=== PATIENT | male | born 1945 | race Caucasian/White ===

== ENCOUNTER 2017-03-22 20:32 | Emergency (ER) | payer MEDICARE, OTHER ==
[~2017-03-22] VITALS: Ht 157.5 cm; Wt 75.0 kg
[~2017-03-22 20:32] MED LIST: COUM2TAB PO; DILA100C PO; LORT5TAB PO; PRIM250 PO
[2017-03-22] MEDS ORDERED: SODIUM CHLORIDE 0.9% FLUSH 10 ML FLUSH IVF PRN (21:00)
[2017-03-22 21:02] VITALS: BP 122/68; PULSE 84; RESP 16; TEMP 98.1; O2SAT 96; O2SAT 99
[2017-03-22] MEDS ORDERED: PRIM250 PO (21:06)
[2017-03-22] MEDS ORDERED: BLOOD PRESSURE (21:06)
[2017-03-22] MEDS ORDERED: PHEN100C PO (21:06)
--- NOTE | 2017-03-22 21:37 | PD ---
HPI Chief Complaint: Fall Time Seen by Provider: 20:52 Travel History International Travel<30 days: No Contact w/Intl Traveler<30days: No Traveled to known affect area: No History of Present Illness HPI 71-year-old male with history of blindness, seizure disorder on Dilantin, here for evaluation of right rib pain after a fall. The patient reports falling 2 days ago as well as again today. He denies head injury or LOC. He is not on any antiplatelets or anticoagulants. He denies dyspnea. Pain is moderate, constant, worse with movements, palpation, and inspiration. He is also having some right upper quadrant abdominal pain after the fall as well. He denies upper or lower extremity pain. PFSH Past Medical History Arthritis: No Asthma: No Heart Rhythm Problems: No Cardiovascular Problems: No Cerebral Palsy: Yes High Cholesterol: No Chest Pain: No Congestive Heart Failure: No COPD: No Cerebrovascular Accident: No Diminished Hearing: No GERD: No Genitourinary: No Headaches: No Hepatitis: No Hiatal Hernia: No Hypertension: Yes Kidney Stones: No Musculoskeletal: Yes Neurologic: No Reproductive: No Respiratory: No Migraines: No Myocardial Infarction: No Renal Failure: No Seizures: Yes Sleep Apnea: No Ulcer: No Tetanus Vaccination: Unknown Influenza Vaccination: No Past Surgical History Abdominal Surgery: No Appendectomy: No Cardiac Surgery: No Cholecystectomy: No Ear Surgery: No Endocrine Surgery: No Eye Surgery: No Genitourinary Surgery: No Gynecologic Surgery: No Oral Surgery: No Thoracic Surgery: No Social History Alcohol Use: No Tobacco Use: No Substance Use: No Allergies-Medications (Allergen,Severity, Reaction): Coded Allergies: No Known Allergies (Verified Adverse Reaction, Unknown, 03/22/17) Reported Meds & Prescriptions Reported Meds & Active Scripts Active Reported [Blood Pressure] Mysoline (Primidone) 250 Mg Tab 250 Mg PO BID Phenytoin Extended 100 Mg Cap 100 Mg PO TID Review of Systems Except as stated in HPI: all other systems reviewed are Neg Physical Exam Narrative GENERAL: Well-developed, well-nourished, pleasant, awake, alert, no apparent distress. SKIN: Focused skin assessment warm/dry. Mild ecchymosis to right anterior/ lateral chest wall. No other areas of ecchymosis. No lacerations or abrasions. HEAD: Atraumatic. Normocephalic. EYES: Pupils equal and round. No scleral icterus. No injection or drainage. ENT: Mucous membranes pink and moist. NECK: Trachea midline. No JVD. No nuchal rigidity. CARDIOVASCULAR: Regular rate and rhythm. RESPIRATORY: No accessory muscle use. Clear to auscultation. Breath sounds equal bilaterally. GASTROINTESTINAL: Abdomen soft, nondistended. Mild right upper quadrant tenderness without peritoneal signs. Rest of abdomen is soft and nontender. MUSCULOSKELETAL: No obvious deformities. No clubbing. No cyanosis. No edema. Normal range of motion in all joints and extremities without tenderness. NEUROLOGICAL: Awake and alert. No obvious cranial nerve deficits. Motor grossly within normal limits. Normal speech. No focal deficits. PSYCHIATRIC: Appropriate mood and affect; insight and judgment normal. Data Data Last Documented VS Vital Signs Date Time Temp Pulse Resp B/P (MAP) Pulse Ox O2 Delivery O2 Flow Rate FiO2 03/22/17 21:02 98.1 84 16 122/68 (86) 96 Room Air Orders Orders Complete Blood Count With Diff (03/22/17 20:56) Prothrombin Time / Inr (Pt) (03/22/17 20:56) Act Partial Throm Time (Ptt) (03/22/17 20:56) Urinalysis - C+S If Indicated (03/22/17 20:56) Chest, Single Ap (03/22/17 20:56) Pelvis, Ap Only (Routine) (03/22/17 20:56) Ct Brain W/O Iv Contrast(Rout) (03/22/17 20:56) Ct Cerv Spine W/O Contrast (03/22/17 20:56) Ct Abd/Pel W Iv Contrast(Rout) (03/22/17 20:56) Ct Thorax/ Chest W Iv Contrast (03/22/17 20:56) Iv Access Insert/Monitor (03/22/17 20:56) Ecg Monitoring (03/22/17 20:56) Oximetry (03/22/17 20:56) Sodium Chloride 0.9% Flush (Ns Flush) (03/22/17 21:00) Comprehensive Metabolic Panel (03/22/17 20:56) Phenytoin (Dilantin) (03/22/17 20:56) Labs Laboratory Tests Test 03/22/17 21:41 03/22/17 21:45 White Blood Count 6.9 TH/MM3 Red Blood Count 4.32 MIL/MM3 Hemoglobin 14.0 GM/DL Hematocrit 39.8 % Mean Corpuscular Volume 92.0 FL Mean Corpuscular Hemoglobin 32.4 PG Mean Corpuscular Hemoglobin Concent 35.2 % Red Cell Distribution Width 13.9 % Platelet Count 184 TH/MM3 Mean Platelet Volume 8.0 FL Neutrophils (%) (Auto) 72.6 % Lymphocytes (%) (Auto) 16.3 % Monocytes (%) (Auto) 10.7 % Eosinophils (%) (Auto) 0.1 % Basophils (%) (Auto) 0.3 % Neutrophils # (Auto) 5.0 TH/MM3 Lymphocytes # (Auto) 1.1 TH/MM3 Monocytes # (Auto) 0.7 TH/MM3 Eosinophils # (Auto) 0.0 TH/MM3 Basophils # (Auto) 0.0 TH/MM3 CBC Comment DIFF FINAL Differential Comment Prothrombin Time 11.5 SEC Prothromb Time International Ratio 1.1 RATIO Activated Partial Thromboplast Time 27.9 SEC Blood Urea Nitrogen 27 MG/DL Creatinine 0.88 MG/DL Random Glucose 128 MG/DL Total Protein 7.4 GM/DL Albumin 3.1 GM/DL Calcium Level 8.1 MG/DL Alkaline Phosphatase 83 U/L Aspartate Amino Transf (AST/SGOT) 38 U/L Alanine Aminotransferase (ALT/SGPT) 37 U/L Total Bilirubin 0.3 MG/DL Sodium Level 138 MEQ/L Potassium Level 4.1 MEQ/L Chloride Level 106 MEQ/L Carbon Dioxide Level 23.8 MEQ/L Anion Gap 8 MEQ/L Estimat Glomerular Filtration Rate 86 ML/MIN Phenytoin (Dilantin) Level 8.9 MCG/ML Urine Color YELLOW Urine Turbidity CLEAR Urine pH 5.5 Urine Specific [place] 1.042 Urine Protein 30 mg/dL Urine Glucose (UA) NEG mg/dL Urine Ketones TRACE mg/dL Urine Occult Blood NEG Urine Nitrite NEG Urine Bilirubin NEG Urine Urobilinogen 4.0 MG/DL Urine Leukocyte Esterase NEG Urine RBC 2 /hpf Urine WBC 2 /hpf Urine Squamous Epithelial Cells <1 /hpf Urine Amorphous Sediment RARE Urine Hyaline Casts 4 /lpf Urine Mucus FEW /lpf Microscopic Urinalysis Comment CATH-CULT NOT IND MDM Medical Decision Making Medical Screen Exam Complete: Yes Emergency Medical Condition: Yes Differential Diagnosis Mechanical fall, metabolic abnormality, intracranial trauma, cervical spine injury, intrathoracic trauma, intra-abdominal trauma, UTI Narrative Course Vital signs show heart rate 84, blood pressure 122/68, pulse ox 99% on room air , oral temp of 98.1F. CBC is unremarkable. CMP is essentially unremarkable. Dilantin level is 8.9. UA is not suggestive of UTI. Chest x-ray: No acute fracture or acute cardiopulmonary disease. Pelvis x-ray: No fracture or other acute abnormality. CT brain: CONCLUSION: 1. Chronic appearing changes with dilatation of ventricular system especially the right occipital horn of the lateral ventricle. 2. No acute hemorrhage or mass effect. CT cervical spine: CONCLUSION: Negative trauma CT. CT thorax: CONCLUSION: 1. No evidence of acute visceral injury. 2. Consolidation right lower lobe with air bronchograms indeterminate age. There is a chronic appearing scarring in the left lung base. 3. Old bilateral rib fractures with no definite acute fracture. 4. Small to moderate size hiatal hernia. 5. Sludge and apparent gallstones noted in the gallbladder. 6. Mild hepatic steatosis. CT abdomen pelvis: CONCLUSION: 1. No evidence of acute visceral injury. 2. Sludge and or low density stones within the gallbladder with no wall thickening or inflammatory change. 3. Consolidation in the right lower lobe with air bronchograms of indeterminate age. There is evidence of more chronic appearing scarring. 4. Small to moderate size hiatal hernia. 5. Mild hepatic steatosis. Patient was made aware of all findings. He is resting comfortably. He is in no respiratory distress. O2 saturation is 96% on room air. He has no cough. This consolidation is likely old, however I will start him on a Z-Gerber for it. Patient is otherwise very well-appearing and is stable for discharge home with further outpatient follow-up with his primary care physician this week. He was informed on when to return to the emergency department. He verbalizes understanding and agreement with plan. Diagnosis Primary Impression: Fall Qualified Codes: W19.XXXA - Unspecified fall, initial encounter Additional Impressions: Chest wall contusion Qualified Codes: S20.211A - Contusion of right front wall of thorax, initial encounter Lung consolidation Referrals: Primary Care Physician 3 days Additional Instructions: Follow-up with your primary care physician this week. Take antibiotic as prescribed. Return to the emergency department for worsening symptoms or any other concerns. Scripts Azithromycin (Zithromax Z-Gerber) 250 Mg Dspk 250 MG PO DIRECTED for Infection, #1 DSPK 0 Refills 500 MG (2 tabs) day 1, then 1 tab days 2-5. Prov: Alex Simmons MD 03/23/17 Disposition: 01 DISCHARGE HOME Condition: Stable Alex Simmons MD Mar 22, 2017 21:37
--- NOTE | 2017-03-22 21:39 | RADRPT ---
EXAM DATE/TIME: 03/22/2017 21:18 [facility] COMPARISON: No previous studies available for comparison. INDICATIONS : Fall. Right rib pain. MEDICAL HISTORY : None. SURGICAL HISTORY : None. ENCOUNTER: Initial ACUITY: 2 days PAIN SCORE: 7/10 LOCATION: Right chest FINDINGS: A single view of the chest demonstrates the lungs to be symmetrically aerated without evidence of mas s, infiltrate or effusion. The cardiomediastinal contours are unremarkable. There is a fracture posterior laterally the right sixth rib that I believe is nonacute. No perceptibl e acute fracture. CONCLUSION: No acute rib fracture or acute cardiopulmonary disease demonstrated. Jason Greer MD on March 22, 2017 at 21:35 Board Certified Radiologist. This report was verified electronically.
--- NOTE | 2017-03-22 21:40 | RADRPT ---
EXAM DATE/TIME: 03/22/2017 21:19 [facility] COMPARISON: No previous studies available for comparison. INDICATIONS : Fall. MEDICAL HISTORY : None. SURGICAL HISTORY : None. ENCOUNTER: Initial ACUITY: 1 day PAIN SCORE: 7/10 LOCATION: Bilateral pelvis FINDINGS: The bony pelvis is intact and has normal morphology. No subluxation seen of either hip. There is mild bilateral osteoarthritis. Intertrochanteric enchondr ranjit seen on the right. Previous trochanteric rodding and nailing on the left. No evidence of hardware failure or loosening. CONCLUSION: No fracture or other acute abnormality demonstrated. Jason Greer MD on March 22, 2017 at 21:37 Board Certified Radiologist. This report was verified electronically.
[2017-03-22 22:03] LABS: BASOPHIL % 0.3 % (0.0-2.0); EOSINOPHIL % 0.1 % (0.0-4.0); HEMATOCRIT 39.8 % (39.0-51.0); HEMO FLAGS DIFF FINAL; LYMPH % 16.3 % (9.0-44.0); LYMPHOCYTE # 1.1 TH/MM3 (1.0-4.8); MEAN CORPUSCULAR HEMOGLOBIN 32.4 PG (27.0-34.0); MEAN CORPUSCULAR HGB CONC 35.2 % (32.0-36.0); MONO % 10.7 % (0.0-8.0); NEUT % 72.6 % (16.0-70.0); PLATELET COUNT 184 TH/MM3 (150-450); RED BLOOD COUNT 4.32 MIL/MM3 (4.50-5.90); RED CELL DISTRIBUTION WIDTH 13.9 % (11.6-17.2); WHITE BLOOD COUNT 6.9 TH/MM3 (4.0-11.0)
[2017-03-22 22:05] LABS: BLOOD, URINE NEG (NEG); GLUCOSE,URINE NEG (NEG); HYALINE CAST, URINE 4 /lpf (RARE); KETONE, URINE TRACE mg/dL (NEG); MUCUS URINE FEW /lpf (OCC); NITRITE,URINE NEG (NEG); PH, URINE 5.5 (5.0-8.5); SQUAMOUS EPITHELIAL CELL URINE <1 /hpf (0-5); URINE COLOR YELLOW (YELLW/STRAW)
[2017-03-22 22:08] LABS: COMMENT (UR) CATH-CULT NOT IND; CULTURE IF INDICATED CATH CULTURE NOT IND
[2017-03-22 22:10] LABS: APTT (PATIENT) 27.9 SEC (24.3-30.1); INTERNATIONAL NORMALIZED RATIO 1.1 RATIO; PROTHROMBIN TIME - PATIENT 11.5 SEC (9.8-11.6)
[2017-03-22 22:14] LABS: ANION GAP 8 MEQ/L (5-15); AST (GOT) 38 U/L (15-37); BICARBONATE 23.8 MEQ/L (21.0-32.0); BLOOD UREA NITROGEN 27 MG/DL (7-18); CHLORIDE 106 MEQ/L (98-107); GLOMERULAR FILTRATION RATE 86 ML/MIN (>89); POTASSIUM 4.1 MEQ/L (3.5-5.1); SODIUM (NA) 138 MEQ/L (136-145)
[2017-03-22 22:15] LABS: ALT (GPT) 37 U/L (12-78)
[2017-03-22 22:18] LABS: ALKALINE PHOSPHATASE 83 U/L (45-117); TOTAL BILIRUBIN ADULT 0.3 MG/DL (0.2-1.0)
--- NOTE | 2017-03-22 23:45 | RADRPT ---
EXAM DATE/TIME: 03/22/2017 23:35 [facility] COMPARISON: No previous studies available for comparison. INDICATIONS : Trauma; fall. RADIATION DOSE: 63.08 CTDIvol (mGy) ; Tabletop CT Head MEDICAL HISTORY : Seizures. cerebral palsy SURGICAL HISTORY : left hip surgery ENCOUNTER: Initial ACUITY: 1 day PAIN SCALE: Non-responsive LOCATION: cranial TECHNIQUE: Multiple contiguous axial images were obtained of the head. Using automated exposure control and adj ustment of the mA and/or kV according to patient size, radiation dose was kept as low as reasonably a chievable to obtain optimal diagnostic quality images. DICOM format image data is available electro nically for review and comparison. FINDINGS: There is marked chronic appearing enlargement of the occipital horn of the right lateral ventric le. The third ventricle and left lateral ventricle are mildly prominent. There is no acute hemorrhage , mass effect or midline shift. No extra-axial fluid collections are identified. The brainstem is int act. The bone windows demonstrate no evidence of acute fracture. CONCLUSION: 1. Chronic appearing changes with dilatation of ventricular system especially the right occipital hor n of the lateral ventricle. 2. No acute hemorrhage or mass effect. Davion Delacruz MD on March 22, 2017 at 23:42 Board Certified Radiologist. This report was verified electronically.
--- NOTE | 2017-03-22 23:55 | RADRPT ---
EXAM DATE/TIME: 03/22/2017 23:35 [facility] COMPARISON: No previous studies available for comparison. INDICATIONS : Trauma; fall. RADIATION DOSE: 24.06 CTDIvol (mGy) MEDICAL HISTORY : Seizures. cerebral palsy SURGICAL HISTORY : left hip surgery ENCOUNTER: Initial ACUITY: 1 day PAIN SCALE: Non-responsive LOCATION: neck TECHNIQUE: Volumetric scanning of the cervical spine was performed. Multiplanar reconstructions i n the sagittal, coronal and oblique axial planes were performed. Using automated exposure control a nd adjustment of the mA and/or kV according to patient size, radiation dose was kept as low as reason ably achievable to obtain optimal diagnostic quality images. DICOM format image data is available e lectronically for review and comparison. FINDINGS: The sagittal reconstructions demonstrate normal alignment and normal prevertebral soft tissues. The d ens is intact and there is a normal atlantoaxial relationship. Degenerative changes present at the C2 -3 level with disc space narrowing and subchondral cyst formation. There are degenerative changes inv olving atlantoaxial joint. The axial images demonstrate that the vertebral bodies and posterior elements are intact. The soft ti ssues are within normal limits. There is no evidence of acute fracture or malalignment. There are deg enerative changes involving the facet joints greatest on the right at the C3-4 level. CONCLUSION: Negative trauma CT. Davion Delacruz MD on March 22, 2017 at 23:52 Board Certified Radiologist. This report was verified electronically.
[2017-03-22] MEDS ORDERED: IOHEXOL 350 MG/ML 10 ML VIAL (for RAD DIAG) IVCONTRAST ONE (23:58)
--- NOTE | 2017-03-22 23:58 | RADRPT ---
EXAM DATE/TIME: 03/22/2017 23:41 [facility] COMPARISON: No previous studies available for comparison. INDICATIONS : Trauma; fall. IV CONTRAST: 96 cc Omnipaque 350 (iohexol) IV ; Cumulative dose for multiple exams. ORAL CONTRAST: No oral contrast ingested. RADIATION DOSE: 12.61 CTDIvol (mGy) ; Combined studies - Thorax/Abdomen/Pelvis MEDICAL HISTORY : Seizures. cerebral palsy SURGICAL HISTORY : left hip surgery ENCOUNTER: Initial ACUITY: 1 day PAIN SCALE: Non-responsive LOCATION: abdomen TECHNIQUE: Volumetric scanning of the abdomen and pelvis was performed. Using automated exposure control and ad justment of the mA and/or kV according to patient size, radiation dose was kept as low as reasonably achievable to obtain optimal diagnostic quality images. DICOM format image data is available electro nically for review and comparison. FINDINGS: LOWER LUNGS: Consolidation is present in the right lower lobe with air bronchograms. There is apparent scarring in both lung bases.. LIVER: Homogeneous density without lesion. There is no dilation of the biliary tree. There is high density sludge and apparent low density stones within the gallbladder. There is no wall thickening or inflamm atory change. There is mild hepatic steatosis. SPLEEN: Normal size without lesion. PANCREAS: Within normal limits. KIDNEYS: Normal in size and shape. There is no mass, stone or hydronephrosis. ADRENAL GLANDS: Within normal limits. VASCULAR: There is no aortic aneurysm. BOWEL/MESENTERY: There is a small to moderate size hiatal hernia. No oral contrast was given limiting the sensitivity of the exam. The stomach, small bowel, and colon demonstrate no acute abnormality. There is no free intraperitoneal air or fluid. ABDOMINAL WALL: Within normal limits. RETROPERITONEUM: There is no lymphadenopathy. BLADDER: No wall thickening or mass. REPRODUCTIVE: Within normal limits. INGUINAL: There is no lymphadenopathy or hernia. MUSCULOSKELETAL: Osteopenia, degenerative change and mild scoliosis are noted. There are postoperative changes in the proximal left femur with intramedullary niyah. There is no acute fracture. CONCLUSION: 1. No evidence of acute visceral injury. 2. Sludge and or low density stones within the gallbladder with no wall thickening or inflammatory ch eris. 3. Consolidation in the right lower lobe with air bronchograms of indeterminate age. There is evidenc e of more chronic appearing scarring. 4. Small to moderate size hiatal hernia. 5. Mild hepatic steatosis. Davion Delacruz MD on March 22, 2017 at 23:54 Board Certified Radiologist. This report was verified electronically.
[2017-03-23] VITALS: BP 107/60; PULSE 72; RESP 18; O2SAT 98
--- NOTE | 2017-03-23 00:02 | RADRPT ---
EXAM DATE/TIME: 03/22/2017 23:41 [facility] COMPARISON: No previous studies available for comparison. INDICATIONS : Trauma; fall. IV CONTRAST: 96 cc Omnipaque 350 (iohexol) IV ; Cumulative dose for multiple exams. RADIATION DOSE: 12.61 CTDIvol (mGy) ; Combined studies - Thorax/Abdomen/Pelvis MEDICAL HISTORY : Seizures. cerebral palsey SURGICAL HISTORY : left hip surgery ENCOUNTER: Initial ACUITY: 1 day PAIN SCALE: Non-responsive LOCATION: chest TECHNIQUE: Volumetric scanning of the chest was performed. Using automated exposure control and adjustment of t he mA and/or kV according to patient size, radiation dose was kept as low as reasonably achievable to obtain optimal diagnostic quality images. DICOM format image data is available electronically for review and comparison. Follow-up recommendations for detected pulmonary nodules are based at a minimum on nodule size and pa tient risk factors according to Fleischner Society Guidelines. FINDINGS: LUNGS: There is no pneumothorax. No concerning pulmonary nodule is visualized. Consolidation is noted the r ight lower lobe with air bronchograms. There are areas of apparent chronic scarring in the left lower lobe. PLEURA: There is no pleural thickening or pleural effusion. MEDIASTINUM: The heart and great vessels demonstrate no acute abnormality. There is no mediastinal or hilar lymph adenopathy. AXILLAE: Within normal limits. No lymphadenopathy. SKELETAL: Osteopenia, degenerative change and mild scoliosis are present. There old bilateral rib fractures no definite acute injury. MISCELLANEOUS: The visualized upper abdominal organs demonstrate no acute abnormality. High-density sludge in appear ance low-density stones are noted in the posterior bladder. There is hepatic steatosis. There is a sm all to moderate sized retrocardiac hiatal hernia. Extensive vascular enhancement is noted in the vein s of the right upper extremity and chest wall. CONCLUSION: 1. No evidence of acute visceral injury. 2. Consolidation right lower lobe with air bronchograms indeterminate age. There is a chronic appeari ng scarring in the left lung base. 3. Old bilateral rib fractures with no definite acute fracture. 4. Small to moderate size hiatal hernia. 5. Sludge and apparent gallstones noted in the gallbladder. 6. Mild hepatic steatosis. Davion Delacruz MD on March 22, 2017 at 23:57 Board Certified Radiologist. This report was verified electronically.
[2017-03-23] MEDS ORDERED: ZITHTAB PO (00:10)
[2017-03-23 03:07] VITALS: BP 105/67; PULSE 77; RESP 18; O2SAT 95
== END 2017-03-23 06:08 | disposition home or self-care (01) ==
LOC: NEPC 20:32
DX: S20.211A Contusion of right front wall of thorax, initial encounter (principal); K44.9 Diaphragmatic hernia without obstruction or gangrene; K76.0 Fatty (change of) liver, not elsewhere classified; G40.909 Epilepsy, unspecified, not intractable, without status epilepticus; G80.9 Cerebral palsy, unspecified; I10 Essential (primary) hypertension; H54.7 Unspecified visual loss; Z79.899 Other long term (current) drug therapy; W19.XXXA Unspecified fall, initial encounter; R10.11 Right upper quadrant pain
CPT/HCPCS: 70450; 71010; 71260; 72125; 72170; 74177; 80053; 80185; 81001; 85025; 85610; 85730; 99285; Q9967